=== PATIENT | male | born 1955 | race Caucasian/White ===

== ENCOUNTER 2021-09-14 14:53 | Inpatient (IN) ==
[2021-09-14 16:19] LABS: Basophils # 0.1 K/mcL (0.0-0.2); Basophils % 0.3 %; Eosinophils # 0.1 K/mcL (0.0-0.6); Eosinophils % 0.3 %; Hematocrit 36.8 % (37.5-50.1); Hemoglobin 12.3 g/dL (12.9-16.9); Immature Granulocytes % 1.4 % (0-4); Lymphocytes # 2.2 K/mcL (0.6-4.6); Lymphocytes % 9.5 %; Mean Corpuscular HGB Conc 33.4 g/dL (31.6-35.5); Mean Corpuscular Hemoglobin 28.3 pg (28.0-33.3); Mean Corpuscular Volume 84.8 fL (83.0-100.0); Mean Platelet Volume 8.6 fL (9.4-12.4); Monocytes # 1.7 K/mcL (0.0-1.3); Monocytes % 7.6 %; Neutrophils # 18.5 K/mcL (1.6-8.9); Platelet Count 566 K/mcL (140-400); Red Blood Count 4.34 M/mcL (4.19-5.50); Red Cell Distribution Width 13.2 % (11.5-14.5); Segmented Neutrophils % 80.9 %; White Blood Count 22.9 K/mcL (4.3-11.1)
[2021-09-14 16:30] LABS: INR 1.4; Prothrombin Time 15.1 Seconds (9.4-12.1)
[2021-09-14 16:32] LABS: Activated Partial Thrombo Time 27.6 Seconds (26.0-36.0)
[2021-09-14 16:39] LABS: BUN/Creatinine Ratio 33 (6-26); Blood Urea Nitrogen 46 mg/dL (8-23); Calcium 9.4 mg/dL (8.6-10.3); Carbon Dioxide 22 mEq/L (23-29); Chloride 93 mEq/L (98-107); Glucose 103 mg/dL (70-105); Osmolality,Calculated 276 (280-300); Potassium 4.5 mEq/L (3.5-5.1); Sodium 127 mEq/L (136-145); eGFR For African Americans > 60 (> 60); eGFR For Non-African Americans 50 (> 60)
[2021-09-14 16:43] LABS: Troponin I 0.04 ng/mL (< 0.04)
[2021-09-14] MEDS ORDERED: Azithromycin 500 MG in 0.9 % Sodium Chloride 250 ML IVPB ONE (17:33)
[2021-09-14] MEDS ORDERED: cefTRIAXone 2,000 MG in 0.9 % Sodium Chloride Mini Bag 100 ML IVPB ONE (17:33)
[2021-09-14] MEDS ORDERED: Acetaminophen 325 MG TABLET PO PRN (18:02)
[2021-09-14] MEDS ORDERED: Naloxone 0.4 MG/ML INJ IVP PRN (18:02)
[2021-09-14] MEDS ORDERED: Ondansetron 4 MG/2 ML VIAL IVP PRN (18:02)
[2021-09-14] MEDS: 0.9 % Sodium Chloride 250 ML IVC SCH (20:23)
[2021-09-14] MEDS ORDERED: GuaiFENesin Liq 200 MG/10 ML UDC PO PRN (20:41)
[2021-09-14] MEDS ORDERED: Melatonin 3 MG TABLET PO PRN (20:41)
[2021-09-14 21:14] LABS: BUN/Creatinine Ratio 32 (6-26); Blood Urea Nitrogen 46 mg/dL (8-23); Calcium 9.6 mg/dL (8.6-10.3); Carbon Dioxide 22 mEq/L (23-29); Chloride 97 mEq/L (98-107); Glucose 106 mg/dL (70-105); Osmolality,Calculated 272 (280-300); Potassium 3.9 mEq/L (3.5-5.1); Sodium 125 mEq/L (136-145); eGFR For African Americans > 60 (> 60); eGFR For Non-African Americans 50 (> 60)
[2021-09-14 21:18] LABS: Alanine Aminotransferase 10 Units/L (7-52); Albumin 3.6 g/dL (3.5-5.7); Albumin/Globulin Ratio 0.8 (1.1-2.2); Alkaline Phosphatase 105 Units/L (34-104); Aspartate Amino Transferase 12 Units/L (13-39); Bilirubin,Direct 0.1 mg/dL (0.0-0.2); Bilirubin,Indirect 0.3 mg/dL (0.0-1.0); Bilirubin,Total 0.4 mg/dL (0.3-1.0); C-Reactive Protein > 300 mg/L (Less than 10); Globulin 4.5 g/dL (2.4-3.5); Total Protein 8.1 g/dL (6.4-8.9)
[2021-09-14] MEDS: *HR* OxyCODONE/APAP 5/325 TABLET PO PRN (21:20)
[2021-09-15] MEDS: 0.9 % Sodium Chloride 250 ML IVC SCH ×4 (00:18→12:25)
[2021-09-15 03:58] LABS: Basophils # 0.1 K/mcL (0.0-0.2); Basophils % 0.4 %; Eosinophils # 0.3 K/mcL (0.0-0.6); Eosinophils % 1.5 %; Hematocrit 34.6 % (37.5-50.1); Hemoglobin 11.4 g/dL (12.9-16.9); Immature Granulocytes % 1.2 % (0-4); Lymphocytes # 2.4 K/mcL (0.6-4.6); Lymphocytes % 12.7 %; Mean Corpuscular HGB Conc 32.9 g/dL (31.6-35.5); Mean Corpuscular Hemoglobin 28.4 pg (28.0-33.3); Mean Corpuscular Volume 86.1 fL (83.0-100.0); Mean Platelet Volume 8.4 fL (9.4-12.4); Monocytes # 1.3 K/mcL (0.0-1.3); Monocytes % 6.9 %; Neutrophils # 14.3 K/mcL (1.6-8.9); Platelet Count 533 K/mcL (140-400); Red Blood Count 4.02 M/mcL (4.19-5.50); Red Cell Distribution Width 13.2 % (11.5-14.5); Segmented Neutrophils % 77.3 %; White Blood Count 18.5 K/mcL (4.3-11.1)
[2021-09-15 04:18] LABS: BUN/Creatinine Ratio 31 (6-26); Blood Urea Nitrogen 42 mg/dL (8-23); Calcium 8.9 mg/dL (8.6-10.3); Carbon Dioxide 23 mEq/L (23-29); Chloride 98 mEq/L (98-107); Glucose 105 mg/dL (70-105); Magnesium 1.4 mg/dL (1.6-2.6); Osmolality,Calculated 281 (280-300); Potassium 4.6 mEq/L (3.5-5.1); Sodium 130 mEq/L (136-145); eGFR For African Americans > 60 (> 60); eGFR For Non-African Americans 53 (> 60)
[2021-09-15] MEDS ORDERED: *HR* Enoxaparin 30 MG/0.3 ML SYRINGE SQ SCH (07:00)
[2021-09-15] MEDS ORDERED: Magnesium Sulfate 1 GM/102 ML PIGGYBACK IVPB ONE (07:49)
[2021-09-15] MEDS ORDERED: Magnesium Sulfate 0 GM/0 ML PIGGYBACK IVPB ONE (08:12)
[2021-09-15] MEDS: cefTRIAXone 1,000 MG in 0.9 % Sodium Chloride Mini Bag 100 ML IVPB SCH (08:17)
[2021-09-15] MEDS: *HR* OxyCODONE/APAP 5/325 TABLET PO PRN ×2 (09:09→17:57)
[2021-09-15] MEDS: Azithromycin 500 MG in 0.9 % Sodium Chloride 250 ML IVPB SCH (10:16)
[2021-09-15] MEDS: carvediloL 25 MG TABLET PO SCH (16:35)
[2021-09-16] MEDS: *HR* OxyCODONE/APAP 5/325 TABLET PO PRN ×3 (04:59→21:02)
[2021-09-16] MEDS: cefTRIAXone 1,000 MG in 0.9 % Sodium Chloride Mini Bag 100 ML IVPB SCH (09:12)
[2021-09-16] MEDS: carvediloL 25 MG TABLET PO SCH ×2 (09:14→17:56)
[2021-09-16] MEDS: *HR* Enoxaparin 40 MG/0.4 ML SYRINGE SQ SCH (09:14)
[2021-09-16] MEDS: Azithromycin 500 MG in 0.9 % Sodium Chloride 250 ML IVPB SCH (09:59)
[2021-09-17] MEDS: *HR* OxyCODONE/APAP 5/325 TABLET PO PRN (04:13)
[2021-09-17 04:50] VITALS: TEMP 98.1
[2021-09-17 06:49] LABS: Basophils # 0.1 K/mcL (0.0-0.2); Basophils % 0.4 %; Eosinophils # 0.4 K/mcL (0.0-0.6); Eosinophils % 2.7 %; Hematocrit 32.8 % (37.5-50.1); Hemoglobin 10.8 g/dL (12.9-16.9); Immature Granulocytes % 1.4 % (0-4); Lymphocytes # 2.5 K/mcL (0.6-4.6); Lymphocytes % 16.4 %; Mean Corpuscular HGB Conc 32.9 g/dL (31.6-35.5); Mean Corpuscular Hemoglobin 28.1 pg (28.0-33.3); Mean Corpuscular Volume 85.4 fL (83.0-100.0); Mean Platelet Volume 8.4 fL (9.4-12.4); Monocytes # 0.9 K/mcL (0.0-1.3); Monocytes % 5.9 %; Neutrophils # 11.2 K/mcL (1.6-8.9); Platelet Count 556 K/mcL (140-400); Red Blood Count 3.84 M/mcL (4.19-5.50); Red Cell Distribution Width 13.5 % (11.5-14.5); Segmented Neutrophils % 73.2 %; White Blood Count 15.3 K/mcL (4.3-11.1)
[2021-09-17 07:11] LABS: BUN/Creatinine Ratio 16 (6-26); Blood Urea Nitrogen 15 mg/dL (8-23); Calcium 9.1 mg/dL (8.6-10.3); Carbon Dioxide 26 mEq/L (23-29); Chloride 100 mEq/L (98-107); Glucose 111 mg/dL (70-105); Magnesium 1.3 mg/dL (1.6-2.6); Osmolality,Calculated 280 (280-300); Potassium 3.9 mEq/L (3.5-5.1); Sodium 134 mEq/L (136-145); eGFR For African Americans > 60 (> 60); eGFR For Non-African Americans > 60 (> 60)
[2021-09-17 08:12] VITALS: BP 149/90; PULSE 89; O2SAT 94
[2021-09-17] MEDS: *HR* Enoxaparin 40 MG/0.4 ML SYRINGE SQ SCH (09:31)
[2021-09-17] MEDS: carvediloL 25 MG TABLET PO SCH (09:31)
[2021-09-17] MEDS: Azithromycin 500 MG in 0.9 % Sodium Chloride 250 ML IVPB SCH (09:32)
[2021-09-17] MEDS: cefTRIAXone 1,000 MG in 0.9 % Sodium Chloride Mini Bag 100 ML IVPB SCH (09:32)
== END 2021-09-17 10:59 | disposition home or self-care (01) | DRG 871 ==
LOC: EMEROOARM 14:53 → SUATTDRO 18:32 → 3BNU 18:32
PROVIDERS: ADMIT Pharmacist; ATTEND Internal Medicine